=== PATIENT | male | born 1970 | race Asian ===

== ENCOUNTER 2018-06-14 01:48 | Emergency (ER) | payer OTHER ==
[~2018-06-14] VITALS: Ht 167.6 cm; Wt 68.0 kg
[2018-06-14 03:09] LABS: BASOPHILS % 0.4 % (0.0-2.0); EOSINOPHILS % 0.1 % (0.0-5.0); HEMATOCRIT. 47.9 % (42.0-52.0); HEMOGLOBIN. 17.1 g/dL (14.0-18.0); LYMPHOCYTES % 9.2 % (20.0-50.0); MEAN CORPUSCULAR HEMOGLOBIN 29.2 pg (28.0-32.0); MEAN CORPUSCULAR VOLUME 81.9 fL (80.0-94.0); MEAN PLATELET VOLUME 8.2 fl (7.4-10.4); MONOCYTES % 3.1 % (2.0-8.0); NEUTROPHILS % 87.2 % (40.0-76.0); PLATELET 229 x1000/uL (130-400); RED BLOOD CELL COUNT 5.86 mill/uL (4.7-6.1); RED CELL DISTRIBUTION WIDTH 13.8 % (11.6-14.6)
[2018-06-14 03:10] LABS: CHLORIDE 107 mEq/L (98-107)
[2018-06-14 04:38] VITALS: BP 144/94
== END 2018-06-14 04:52 | disposition home or self-care (01) ==
LOC: ER 01:48
DX: R06.4 Hyperventilation (principal); I10 Essential (primary) hypertension
CPT/HCPCS: 36415; 71045; 80048; 85025; 93005; 99285; Z7610